=== PATIENT | male | born 1945 | race Caucasian/White ===

== ENCOUNTER 2019-03-26 00:10 | Emergency (ER) | payer MEDICARE, BC ==
[~2019-03-26] VITALS: Ht 171.4 cm; Wt 87.0 kg
[2019-03-26 00:23] VITALS: Ht 171.4 cm; Wt 87.0 kg
[2019-03-26] MEDS ORDERED: DIPHTH/TET/ACEL PERTUSS (ADULT) 0.5 ML VIAL IM* ONE (00:30)
--- NOTE | 2019-03-26 02:16 | ERD ---
ER Documentation Chief Complaint Chief Complaint brought in by RA. [facility] home. GLF lact to occipital head. no ko. HPI Is a 73-year-old male brought in by rescue from a ground-level fall. He fell back and hit the back of his head it was a mechanical fall. No loss of consciousness. A small laceration. This was read by rescue. His status. No fevers no chills. No nausea no vomiting. No focal neurological complaints. ROS All systems reviewed and are negative except as per history of present illness. Allergies Allergies: Coded Allergies: No Known Drug Allergy (Verified Allergy, Mild, 03/27/08) PMhx/Soc Hx Cardiac Disorders: Yes (HTN) Hx Miscellaneous Medical Probl: Yes (GOUT) Hx Alcohol Use: No Hx Substance Use: No Hx Tobacco Use: No Smoking Status: Never smoker Physical Exam Vitals Vital Signs Date Temp Pulse Resp B/P (MAP) Pulse Ox O2 O2 Flow FiO2 Time Delivery Rate 03/26/19 98.6 74 18 127/83 96 00:23 (98) Physical Exam Const: No acute distress Head: Atraumatic Eyes: Normal Conjunctiva ENT: Normal External Ears, Nose and Mouth. Neck: Full range of motion. No meningismus. Resp: Clear to auscultation bilaterally Cardio: Regular rate and rhythm, no murmurs Abd: Soft, non tender, non distended. Normal bowel sounds Skin: No petechiae or rashes Back: No midline or flank tenderness Ext: No cyanosis, or edema Neur: Awake and alert Psych: Normal Mood and Affect Results 24 hrs Current Medications Medications Dose Sig/Geni Start Time Status Last (Trade) Ordered Route PRN Stop Time Admin Dose Reason Admin Diphtheria/ 0.5 ml ONCE ONCE 03/26/19 DC 03/26/19 Tetanus/Acell IM* 00:30 03/26/19 00:38 Pertussis 00:31 (Adacel) Procedures/MDM CT head is read as negative by radiologist Laceration Repair by me: Anesthesia: 1% lidocaine locally Location: Scalp Tendon/Joint/Nerves: No injury Foreign body: None detected after copious irrigation and exploration Technique: Carlos Complexity: No subcutaneous sutures/mucosal repair/edge excision Post Closure Length: 4 cm Patient's bleeding was easily controlled in the department and there is no indication of anemia. No evidence of compartment syndrome, neurologic injury, vascular injury, open joint, tendon laceration, or foreign body. Patient is appropriate for outpatient follow up. 48 hour wound check. Scar minimization instructions given. Medical decision making: This is a 73-year-old male who comes in with a closed head injury. At this point is clinically stable for outpatient management. Patient will be discharged home. Follow-up in 2 days for wound check. Follow- up with PCP tomorrow. Departure Diagnosis: Primary Impression: Scalp laceration Encounter type: initial encounter Qualified Codes: S01.01XA - Laceration without foreign body of scalp, initial encounter Condition: Serious Patient Instructions: Scalp Contusion, No Wake Up MANDEEP CHRISTIE Mar 26, 2019 02:16
[2019-03-26 02:32] VITALS: BP 124/64; PULSE 78; RESP 20
== END 2019-03-26 02:33 | disposition home or self-care (01) ==
LOC: E/R 00:10
DX: S01.01XA Laceration without foreign body of scalp, initial encounter (principal); I10 Essential (primary) hypertension; W01.198A Fall on same level from slipping, tripping and stumbling with subsequent striking against other object, initial encounter; Y92.9 Unspecified place or not applicable; Z23 Encounter for immunization; R51 Headache
CPT/HCPCS: 70450; 90471; 90715

== ENCOUNTER 2019-04-06 11:30 | Emergency (ER) | payer MEDICARE, BC ==
[~2019-04-06] VITALS: Ht 162.6 cm; Wt 83.3 kg
[2019-04-06 11:38] VITALS: BP 135/75; PULSE 66; RESP 20; Ht 162.6 cm; Wt 83.3 kg
== END 2019-04-06 12:25 | disposition home or self-care (01) ==
LOC: FTE 11:30
DX: Z48.02 Encounter for removal of sutures (principal)
CPT/HCPCS: 99281